=== PATIENT | male | born 1965 | race Caucasian/White ===

== ENCOUNTER 2020-07-07 18:08 | Emergency (ER) | payer MEDICAID, OTHER ==
[~2020-07-07] VITALS: Ht 170.2 cm; Wt 89.8 kg
[2020-07-07 18:11] VITALS: BP 156/104
[2020-07-07] MEDS ORDERED: ONDANSETRON 4 MG/2 ML VIAL IVP ONE (18:20)
[2020-07-07] MEDS ORDERED: KETOROLAC 30 MG/ML VIAL IVP ONE (18:20)
[2020-07-07] MEDS ORDERED: NACL 0.9% 500 ML IV ONE (18:20)
--- NOTE | 2020-07-07 18:24 | NUR ---
Patient ambulated to bed 7. RN evaluating patient at bedside.
--- NOTE | 2020-07-07 18:27 | NUR ---
Dr. Estrada is evaluating the patient at bedside.
--- NOTE | 2020-07-07 18:28 | NUR ---
55 y/o male from home c/o right lower quadrant pain x 3 days. Pt denies change in appetite. Abd soft, round, and tender to palpation. Denies difficulty with bowel movement. States constant 10/10 sharp, nonradiating pain. Denies Vomiting/diarrhea. Afebrile, denies chills. Pt took Advil approx 20 min prior to arrival. Awake and alert, positioned for comfort. medhx: DM, right kidney removal, gallbladder removal, partial pancreatectomy
[2020-07-07 18:44] LABS: BASOPHILS # (AUTO) 0.1 K/uL (0.00-0.22); BASOPHILS % (AUTO) 0.7 % (0.0-2.0); EOSINOPHILS # (AUTO) 0.2 K/uL (0-0.4); EOSINOPHILS % (AUTO) 2.6 % (0.0-4.0); HEMATOCRIT 43.6 % (36-52); HEMOGLOBIN 15.1 g/dL (12.0-18.0); LYMPHOCYTES # (AUTO) 2.2 K/uL (2.0-11.5); LYMPHOCYTES % (AUTO) 30.1 % (20.5-51.1); MEAN CORPUSCULAR HEMOGLOBIN 30 pg (27-31); MEAN CORPUSCULAR HGB CONC 35 g/dL (33-37); MEAN CORPUSCULAR VOLUME 87.5 fL (80-94); MONOCYTES # (AUTO) 0.7 K/uL (0.8-1.0); MONOCYTES % (AUTO) 8.9 % (1.7-9.3); NEUTROPHILS # (AUTO) 4.2 K/uL (1.8-7.7); NEUTROPHILS % (AUTO) 57.7 % (42.2-75.2); PLATELET COUNT (AUTO) 186 K/uL (140-450); RED BLOOD CELL COUNT(AUTO) 4.98 MIL/uL (4.20-6.10); RED CELL DISTRIBUTION WIDTH 14.1 % (11.6-13.7); WHITE BLOOD COUNT (AUTO) 7.3 K/uL (4.8-10.8)
--- NOTE | 2020-07-07 18:44 | NUR ---
20G IV placed to left AC, blood drawn and given to can labeler at this time.
--- NOTE | 2020-07-07 18:49 | NUR ---
Patient taken to CT scan via wheelchair by tech.
--- NOTE | 2020-07-07 19:13 | NUR ---
RECIEVED REPORT FROM JASEN CARTWRIGHT. TRANSFER OF CARE AT THIS TIME.
[2020-07-07 19:14] LABS: ALBUMIN 3.9 g/dL (3.4-5.0); ANION GAP 14.9 (8-16); CARBON DIOXIDE 23.4 mmol/L (21-32); CREATININE 1.9 mg/dL (0.6-1.3); POTASSIUM 4.3 mmol/L (3.5-5.1); TOTAL BILIRUBIN 0.4 mg/dL (0.0-1.0)
--- NOTE | 2020-07-07 19:14 | NUR ---
Report given to JASEN Story. Transfer of care at this time
--- NOTE | 2020-07-07 19:20 | NUR ---
PT AMBULATED WITH STEADY GAIT TO RR TO PROVIDE UA
--- NOTE | 2020-07-07 19:32 | NUR ---
PT STATES HIS PAIN IS MANAGED AND DENIES NEED FOR ADDITIONAL PAIN MEDICINE. RR EVEN AND UNLABORED. BED LOCKED AND IN LOWEST POSITION. SIDE RAILS X1.
[2020-07-07 20:20] VITALS: BP 152/102
[2020-07-07 20:24] LABS: APPEARANCE,URINE CLEAR (CLEAR); BILIRUBIN,URINE NEGATIVE (NEGATIVE); BLOOD, URINE NEGATIVE (NEGATIVE); COLOR,URINE YELLOW (YELLOW); LEUKOCYTE ESTERASE ,URINE NEGATIVE (NEGATIVE); NITRITE, URINE NEGATIVE (NEGATIVE); PH,URINE 5.5 (5.0-9.0); UGLUCOSE NEGATIVE (NEGATIVE)
== END 2020-07-07 20:20 | disposition home or self-care (01) ==
LOC: MED 18:08
DX: R10.9 Unspecified abdominal pain (principal); E11.9 Type 2 diabetes mellitus without complications; I10 Essential (primary) hypertension; Z90.5 Acquired absence of kidney; Z88.6 Allergy status to analgesic agent; Z88.1 Allergy status to other antibiotic agents; Z90.49 Acquired absence of other specified parts of digestive tract
CPT/HCPCS: 36415; 74176; 80053; 81003; 85025; 96361; 96374; 96375; 99284; J1885; J2405; J7030

== ENCOUNTER 2022-01-08 14:05 | Emergency (ER) | payer OTHER ==
[~2022-01-08] VITALS: Ht 167.6 cm; Wt 89.8 kg
[2022-01-08 14:22] VITALS: BP 178/112
--- NOTE | 2022-01-08 14:45 | NUR ---
Note alonso in EDM - 01/08/22 at 1446 by [id number] d/c with VSS. d/c education given. opportunity to ask questions given and answered. rx of naprosyn and zithromax given.
[2022-01-08] MEDS ORDERED: NAPR-54 PO (15:17)
[2022-01-08] MEDS ORDERED: METO-486 PO (15:17)
--- NOTE | 2022-01-08 15:48 | NUR ---
Patient discharged with v/s stable. Written and verbal after care instructions ABOUT NAUSEA AND FINGER SPRAIN given and explained. Patient alert, oriented and verbalized understanding of instructions. Ambulatory with steady gait. All questions addressed prior to discharge. ID band removed. Patient advised to follow up with PMD. Rx of NAPROXEN AND REGLAN given. Patient educated on indication of medication including possible reaction and side effects. Opportunity to ask questions provided and answered. PT SEEN AND D/C BY KAYLIN ANDREWS, NO NURSING INTERVENTIONS PROVIDED
== END 2022-01-08 15:48 | disposition home or self-care (01) ==
LOC: MED 14:05
DX: M79.644 Pain in right finger(s) (principal); R11.0 Nausea; E11.9 Type 2 diabetes mellitus without complications; I10 Essential (primary) hypertension; Z98.890 Other specified postprocedural states; Z88.5 Allergy status to narcotic agent; Z88.1 Allergy status to other antibiotic agents
CPT/HCPCS: 73130; 99283